=== PATIENT | female | born 1945 | race Caucasian/White ===

== ENCOUNTER → 2017-01-13 | Outpatient (CLI) | payer MEDICARE, OTHER ==
[~2017-01-13] MED LIST: ASPI81TA2 PO; ATEN50TA66 PO; BETA1TAB20 PO; FERR-22 PO; MULT-1243 PO; OLME40TA9 PO; PRAV40TA44 PO; [UNRECOGNIZED DRUG - CODE] PO
== END ==
LOC: WC.BC 08:06
DX: Z12.31 Encounter for screening mammogram for malignant neoplasm of breast (principal); C50.911 Malignant neoplasm of unspecified site of right female breast; Z90.11 Acquired absence of right breast and nipple
CPT/HCPCS: 77063; G0202